=== PATIENT | female | born 1995 | race American Indian/Alaskan Native ===

== ENCOUNTER 2018-09-05 12:43 | Emergency (ER) | payer OTHER ==
[2018-09-05 13:01] VITALS: BP 122/74
[2018-09-05 14:18] LABS: HCG Qualitative,Urine Negative (Negative)
[2018-09-05 14:20] LABS: Bilirubin,Urine NEG (Negative); Blood,Urine NEG (Negative); Color,Urine Yellow (Yellow); Mucus,Urine FEW /HPF; Protein,Urine <15 mg/dL mg/dL (Negative); Urobilinogen,Urine < 2.0 mg/dL (<2.0)
[2018-09-05] MEDS ORDERED: ZOFRAN ODT PO ONE (14:39)
--- NOTE | 2018-09-05 14:39 | Emergency Department Report ---
Vomiting/Diarrhea - HPI Chief Complaint: Abdominal Pain Stated Complaint: APPENDIX/STOMACH PAIN/VOMITING Time Seen by Provider: 09/05/18 14:36 Duration: Today Severity: mild Nausea/Vomiting Severity: Mild Diarrhea Severity: None Pain Severity: Mild Symptoms: Yes Able to Tolerate Fluids, No Watery Diarrhea, No Bloody diarrhea, No Fever, No Recent Unusual Foods, No Recent Untreated Water, No Recent use of Antibiotics, No Family w/ Similar Symptoms, No Contacts w/ Similar Symptoms, No Rash, No Hematuria, No Recent URI Symptoms Other History: Patient is a 23-year-old -[place] female who comes to the ER today complaining of lower abdominal pain with vomiting this a.m. She denies vaginal bleeding or discharge. She states that her last menstrual period was the middle July. She was concerned that she is . She is on no home medications. Has no major medical. She is nontoxic by mouth in the emergency room waiting room ED Review of Systems ROS: Stated complaint: APPENDIX/STOMACH PAIN/VOMITING Other details as noted in HPI Comment: All other systems reviewed and negative Constitutional: denies: chills Eyes: denies: eye pain ENT: denies: throat pain Respiratory: denies: cough Cardiovascular: denies: palpitations Endocrine: denies: flushing Gastrointestinal: as per HPI, abdominal pain, nausea, vomiting Genitourinary: as per HPI, abnormal menses. denies: urgency, dysuria, frequency, hematuria, discharge, dyspareunia Musculoskeletal: denies: back pain Skin: denies: rash Neurological: denies: headache Psychiatric: denies: anxiety Hematological/Lymphatic: denies: easy bleeding ED Past Medical Hx - Past Medical History Previous Medical History?: No - Surgical History Past Surgical History?: No - Family History Family history: no significant - Social History Smoking Status: Never Smoker Substance Use Type: Alcohol Vomiting Diarrhea Exam - Exam General: Vital signs noted. No distress. Alert and acting appropriately. HEENT: Yes Moist Mucous Membranes, No Pharyngeal Erythema, No Pharyngeal Exudates, No Rhinorrhea, No Conjuctival Injection, No Frontal Tenderness, No Maxillary Tenderness Neck: No Adenopathy, No Rigidity Lungs: Yes Clear Lung Sounds, Yes Good Air Exchange, No Wheezes, No Stridor, No Cough, No Nasal Flaring, No Retractions, No Use of Accessory Muscles Heart exam: Regular: Yes, Murmur: No, Tachycardia: No Abdomen: Tenderness: No (SOFT NON TENDER; NO REBOUND; TAKING PO), Peritoneal Signs: No, Distention: No, Hyperactive Bowel sounds: No Skin exam: Rash: No, Edema: No, Normal turgor: No Neurologic: Alert and oriented, no deficits. Musculoskeletal: Unremarkable. ED Course Vital Signs 09/05/18 12:58 Temperature 98.8 F Pulse Rate 82 Respiratory 18 Rate Blood Pressure 122/74 O2 Sat by Pulse 98 Oximetry ED Medical Decision Making - Medical Decision Making She comes to the ER concerned that she is Labs 09/05/18 14:00 Urine Color Yellow Urine Turbidity Clear Urine pH 8.0 H Ur Specific [place] 1.013 Urine Protein <15 mg/dl Urine Glucose (UA) Neg Urine Ketones Neg Urine Blood Neg Urine Nitrite Neg Ur Reducing Substances Not Reportable Urine Bilirubin Neg Urine Ictotest Not Reportable Urine Urobilinogen < 2.0 Ur Leukocyte Esterase Neg Urine WBC (Auto) 1.0 Urine RBC (Auto) 4.0 U Epithel Cells (Auto) < 1.0 Urine Mucus Few Urine HCG, Qual Negative test negative. Urine noted. Discussed with patient. - Differential Diagnosis RO PREG Critical care attestation.: If time is entered above; I have spent that time in minutes in the direct care of this critically ill patient, excluding procedure time. ED Disposition Clinical Impression: Vomiting Disposition: DC-01 TO HOME OR SELFCARE Is pt being admited?: No Does the pt Need Aspirin: No Condition: Stable Instructions: Acute Nausea and Vomiting (ED) Additional Instructions: ADVANCE DIET TOLERATED HYDRATE WELL WITH WATER FOLLOW UP PCP IF PERSISTS NEG AND URINE NORMAL TODAY Referrals: SYL PHELPS MD [Staff Physician] - 3-5 Days Time of Disposition: 14:46
== END 2018-09-05 16:01 | disposition home or self-care (01) ==
LOC: ED 12:43
DX: R11.10 Vomiting, unspecified (principal); R10.30 Lower abdominal pain, unspecified
CPT/HCPCS: 81001; 81025; 99283; Q0162